=== PATIENT | male | born 1980 | race Caucasian/White ===

== ENCOUNTER 2017-09-08 02:19 | Emergency (ER) | payer OTHER ==
--- NOTE | 2017-09-08 03:05 | RADIOLOGY REPORT (SQ) ---
EXAM DESCRIPTION: KNEE LEFT 4 VIEW COMPLETED DATE/TIME: 09/08/2017 2:51 am REASON FOR STUDY: left knee swelling COMPARISON: None. NUMBER OF VIEWS: Four views. TECHNIQUE: AP, lateral, and both oblique radiographic images acquired of the left knee. LIMITATIONS: None. FINDINGS: MINERALIZATION: Normal. BONES: No acute fracture or dislocation. No worrisome bone lesions. JOINT: Joint effusion. SOFT TISSUES: Prepatellar soft tissue swelling. OTHER: No other significant finding. IMPRESSION: No acute bony findings. Joint effusion. Prepatellar soft tissue swelling. TECHNICAL DOCUMENTATION: JOB ID: [id number] [email or web address] All Rights Reserved
--- NOTE | 2017-09-08 03:55 | ER Document Report ---
ED Extremity Problem, Lower - General Mode of Arrival: Medic Information source: Patient - HPI Patient complains to provider of: Pain, Swelling Location: Knee Occurred: Other - 1.5 weeks ago Associated symptoms: Other - see notes above <ELIDA MAYO - Last Filed: 09/08/17 05:31> <MARGE HENDERSON - Last Filed: 09/08/17 06:24> <JENNIFER JOHANSEN - Last Filed: 09/08/17 15:33> <MAGALY WEN - Last Filed: 09/08/17 23:13> - General Chief Complaint: Knee Pain Stated Complaint: LEG PAIN Time Seen by Provider: 09/08/17 03:38 Notes: 37 year old male with history of gout and gallbladder problems presents to the ED complaining of severe left knee pain that extends to the left groin which started 1.5 weeks ago and worsened tonight. Patient is also complaining of left knee swelling that extends down the leg. Patient has been taking Ibuprofen for the past 1.5 weeks for pain and swelling control. Patient was seen at an Urgent Care 2 days ago where blood work was preformed. Patient was given Relafen, Allopurinol, and a steroid shot. Patient denies any fever. 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 Patient reports that he is 'burping up sulfur' and states that this is usually associated with ' gallbladder attacks'. (ELIDA MAYO) - Related Data Allergies/Adverse Reactions: No Known Allergies Allergy (Unverified 09/08/17 02:28) Past Medical History - General Information source: Patient - Social History Smoking Status: Current Every Day Smoker Chew tobacco use (# tins/day): Yes Frequency of alcohol use: None Drug Abuse: None Family History: Reviewed & Not Pertinent Renal/ Medical History: Denies: Hx Peritoneal Dialysis Musculoskeltal Medical History: Reports Hx Gout, Reports Hx Musculoskeletal Trauma - Back and neck fractures <ELIDA MAYO - Last Filed: 09/08/17 05:31> Review of Systems - Review of Systems Constitutional: No symptoms reported. denies: Fever EENT: No symptoms reported Cardiovascular: No symptoms reported Respiratory: No symptoms reported Gastrointestinal: No symptoms reported Genitourinary: No symptoms reported Male Genitourinary: No symptoms reported Musculoskeletal: See HPI, Joint pain - left knee, Joint swelling - left knee that extends down the leg, Other - left groin pain Skin: No symptoms reported Hematologic/Lymphatic: No symptoms reported Neurological/Psychological: No symptoms reported -: Yes All other systems reviewed and negative <ELIDA MAYO - Last Filed: 09/08/17 05:31> Physical Exam <ELIDA MAYO - Last Filed: 09/08/17 05:31> <MARGE HENDERSON - Last Filed: 09/08/17 06:24> <JENNIFER JOHANSEN - Last Filed: 09/08/17 15:33> <MAGALY WEN - Last Filed: 09/08/17 23:13> - Vital signs Vitals: Temp Pulse Resp BP Pulse Ox 97.9 F 87 18 150/101 H 98 09/08/17 02:33 09/08/17 02:33 09/08/17 02:33 09/08/17 02:33 09/08/17 02:33 - Notes Notes: GENERAL: Alert, interacts well. Patient is crying and writhing in pain upon physical examination and manipulation of left lower extremity. HEAD: Normocephalic, atraumatic. EYES: Pupils equal, round, and reactive to light. Extraocular movements intact. ENT: Oral mucosa moist, tongue midline. NECK: Full range of motion. Supple. Trachea midline. LUNGS: Clear to auscultation bilaterally, no wheezes, rales, or rhonchi. No respiratory distress. HEART: Regular rhythm; Tachycardic. No murmurs, gallops, or rubs. ABDOMEN: Soft, non-tender. Non-distended. Bowel sounds present in all 4 quadrants. EXTREMITIES: Radial and dorsalis pedis pulses 2/4 bilaterally. No cyanosis. Left knee is swollen and tender to palpation. Left knee is not erythematous or more warm than right knee. Decrease passive and active range of motion to left knee. Left calf more swollen than right calf. Left thigh is not swollen. No swelling to the left juarez. Left leg is initially flexed at the hip with the knee straight on the stretcher. During examination, patient was unable to passively flex the left knee more than 45 degrees. NEUROLOGICAL: Alert and oriented x3. Normal speech. PSYCH: Normal affect, normal mood. SKIN: Warm and dry. No rashes or lesions noted. (ELIDA MAYO) Course - Laboratory Result Diagrams: 09/08/17 04:16 09/08/17 04:16 <ELIDA MAYO - Last Filed: 09/08/17 05:31> - Laboratory Result Diagrams: 09/08/17 04:16 09/08/17 04:16 - Transfer of Care Care transferred to following provider: Dr. Johansen <MARGE HENDERSON - Last Filed: 09/08/17 06:24> - Laboratory Result Diagrams: 09/08/17 04:16 09/08/17 04:16 <JENNIFER JOHANSEN - Last Filed: 09/08/17 15:33> - Laboratory Result Diagrams: 09/08/17 04:16 09/08/17 04:16 <MAGALY WEN - Last Filed: 09/08/17 23:13> - Re-evaluation Re-evalutation: 09/08/17 04:42 Attempted to aspirate the left knee using sterile technique after numbing with lidocaine, dry tap on both the medial and the lateral aspect. 09/08/17 06:24 Patient is feeling somewhat better, I am concerned by the elevated white blood cell count and the elevated CRP. Patient is a diesel truck mechanic so I am concerned for the possibility of a DVT versus a septic joint given the leukocytosis and elevated CRP. As I was unable to obtain any fluid we will continue to look for DVT. Doppler ultrasound will not be in for the next 1-2 hours, patient has been signed out to Dr. Johansen. Should the ultrasound negative for DVT the patient will likely need orthopedic consultation for possible septic joint. ( MARGE HENDERSON) 09/08/17 09:[address] Goodman notified. 09/08/17 14:38 Dr. Goodman was able to extract synovial fluid was sent for testing currently waiting on those results (JENNIFER JOHANSEN) 09/08/17 17:00 Fluid has a negative Gram stain. White cells are 567. Patient is still having knee pain. No evidence for infection. Discussed with Dr. Goodman who recommends giving the patient colchicine and Toradol. Patient is to follow-up in the office. Patient will be given food as he has been kept n.p.o. for possible surgery. Patient has a knee immobilizer at home but will need crutches. Of note, the patient does not want any narcotic medication to go home with, so Percocet was canceled. (MAGALY WEN) - Vital Signs Vital signs: Temp Pulse Resp BP Pulse Ox 98.0 F 77 16 117/72 97 09/08/17 18:22 09/08/17 18:22 09/08/17 18:22 09/08/17 18:22 09/08/17 18:22 - Laboratory Laboratory results interpreted by me: 09/08/17 09/08/17 09/08/17 04:16 04:16 04:16 WBC 11.8 H RDW 14.1 H Sodium 146.2 H C-Reactive Protein 13.1 H Total Protein 6.2 L Discharge <ELIDA MAYO - Last Filed: 09/08/17 05:31> <MARGE HENDERSON - Last Filed: 09/08/17 06:24> <JENNIFER JOHANSEN - Last Filed: 09/08/17 15:33> <MAGALY WEN - Last Filed: 09/08/17 23:13> - Discharge Clinical Impression: Left knee pain Qualifiers: Chronicity: acute Qualified Code(s): M25.562 - Pain in left knee Condition: Good Disposition: HOME, SELF-CARE Additional Instructions: Follow-up with your primary care physician. Prescriptions: Indomethacin [Indocin 25 mg Capsule] 25 - 50 mg PO BIDP PRN #30 capsule PRN Reason: Oxycodone HCl/Acetaminophen [Percocet 5-325 mg Tablet] 1 - 2 tab PO Q4H PRN #20 tablet PRN Reason: Referrals: PORTER MCKEON FNP-C [Primary Care Provider] - Follow up as needed LAILA GOODMAN DO [ACTIVE STAFF] - Follow up in 3-5 days Scribe Attestation: 09/08/17 23:13 I personally performed the services described in the documentation, reviewed and edited the documentation which was dictated to the scribe in my presence, and it accurately records my words and actions. (MAGALY WEN) Scribe Documentation - Scribe Written by Scribe:: Virgil Bynum, 09/08/2017 0424 acting as scribe for :: Nando <ELIDA MAYO - Last Filed: 09/08/17 05:31>
[2017-09-08] MEDS ORDERED: OXYCODONE-ACETAMINOPHEN 5-325 MG TABLET PO ONE (03:56)
[2017-09-08] MEDS ORDERED: LIDOCAINE 1% INJ-PF (10 MG/ML) 30 ML SDV INJ ONE (03:56)
[2017-09-08 04:26] LABS: ABSOLUTE BASOPHILS # (AUTO) 0.1 10^3/uL (0.0-0.2); ABSOLUTE EOSINOPHILS # (AUTO) 0.3 10^3/uL (0.0-0.6); ABSOLUTE LYMPHOCYTES (AUTO) 3.2 10^3/uL (0.5-4.7); ABSOLUTE MONOCYTES (AUTO) 0.8 10^3/uL (0.1-1.4); ABSOLUTE NEUT (AUTO) 7.4 10^3/uL (1.7-8.2); BASOPHILS % (AUTO) 0.6 % (0-2); EOSINOPHILS % (AUTO) 2.7 % (0-6); HEMATOCRIT 40.6 % (37.9-51.0); HEMOGLOBIN 14.1 g/dL (13.5-17.0); HGB HCT DIFFERENCE 1.7; MEAN CORPUSCULAR HEMOGLOBIN 30.9 pg (27.0-33.4); MEAN CORPUSCULAR HGB CONC 34.9 g/dL (32.0-36.0); MEAN CORPUSCULAR VOLUME 89 fl (80-97); RED BLOOD COUNT 4.58 10^6/uL (4.35-5.55); RED CELL DISTRIBUTION WIDTH 14.1 % (11.5-14.0); SEGMENTED NEUTROPHILS % (AUTO) 62.7 % (42-78); WHITE BLOOD COUNT 11.8 10^3/uL (4.0-10.5)
[2017-09-08 04:37] LABS: ALANINE AMINOTRANSFERASE 36 U/L (21-72); ALKALINE PHOSPHATASE 87 U/L (38-126); ANION GAP 12 (5-19); ASPARTATE AMINO TRANSFERASE 22 U/L (17-59); BILIRUBIN,DIRECT 0.4 mg/dL (0.0-0.4); BILIRUBIN,TOTAL 0.6 mg/dL (0.2-1.3); BLOOD UREA NITROGEN 18 mg/dL (7-20); CALCIUM 9.3 mg/dL (8.4-10.2); CARBON DIOXIDE 28 mmol/L (22-30); CHLORIDE 106 mmol/L (98-107); GLUCOSE 90 mg/dL (75-110); LIPASE 170.6 U/L (23-300); SODIUM 146.2 mmol/L (137-145); TOTAL PROTEIN 6.2 g/dL (6.3-8.2)
[2017-09-08] MEDS ORDERED: MORPHINE SULFATE 10 MG/ML INJ IV ONE ×2 (05:04→06:24)
[2017-09-08 05:29] LABS: PROTHROMBIN TIME 11.6 SEC (11.4-15.4)
[2017-09-08 06:04] LABS: APPEARANCE,URINE CLEAR; BILIRUBIN,URINE NEGATIVE (NEGATIVE); GLUCOSE, URINE NEGATIVE (NEGATIVE); KETONES,URINE NEGATIVE (NEGATIVE); LEUKOCYTE ESTERASE,URINE NEGATIVE (NEGATIVE); NITRITE,URINE NEGATIVE (NEGATIVE); PROTEIN,URINE NEGATIVE (NEGATIVE); URINE SPECIFIC GRAVITY 1.024; UROBILINOGEN,URINE NEGATIVE mg/dL (<2.0)
[2017-09-08] MEDS: MORPHINE SULFATE 10 MG/ML INJ IV SCH ×6 (08:04→18:24)
[2017-09-08 14:30] LABS: FLUID TYPE SYNOVIAL
[2017-09-08 14:31] LABS: FLUID APPEARANCE CLOUDY; FLUID RBC SIDE 1 148
[2017-09-08 14:32] LABS: FLUID RBC AVERAGE 149.5; FLUID RBC DILUENT USED SALINE; FLUID RBC DILUTION FACTOR 10; FLUID RBC SIDE 2 151; TOTAL RBC SQUARES COUNTED FLD 25
[2017-09-08] MEDS ORDERED: COLCHICINE 0.6 MG TABLET PO ONE (16:06)
[2017-09-08] MEDS ORDERED: KETOROLAC TROMETHAMINE INJ/PF 30 MG/1 ML SDV IV ONE (16:12)
--- NOTE | 2017-09-08 16:25 | XCELERA REPORT ---
[address] [address] Lower Extremity Venous Evaluation Name: FER PAUL Age: 37 yrs Gender: Male : 1980 Patient Status: Emergency Patient Location: ER Study Date: 09/08/2017 08:06 AM Procedure: Color flow and duplex imaging of the veins of the left lower extremity as well as the right Common Femoral vein. Reason For Study: left leg swelling and pain Ordering Physician: MARGE HENDERSON Performed By: Ban Juarez Right Sided Venous Evaluation The right common femoral vein is fully compressible. Spontaneous and phasic flow is present in the right common femoral vein. Left Sided Venous Evaluation Normal vessel filling wall to wall, compression and augmentation as well as Colour flow down to the infrageniculate veins. Interpretation Summary No duplex evidence of DVT or obstruction in the left lower extremity nor in the right Common Femoral vein. : MARGE HENDERSON > Brandyn Medrano
--- NOTE | 2017-09-08 17:28 | PDOC CONSULTATION ---
History of Present Illness Admission Date/PCP: ARTEMIO MCCARTNEY Patient complains of: left knee pain History of Present Illness: FER PAUL is a 37 year old male presents to the emergency room with left knee pain. he states has been ongoing since friday and then his pain exacerbated over the past 24 hours. since that time he had difficulty bearing weight onto his left leg. he notes history of gout which he takes allopurinol for. denies fever chills or sweats. 2 attempts at aspiration were performed today in the emergency room unsuccessfully. patient denies history of gout in his left knee. pain 06/02. Past Medical History Musculoskeltal Medical History: Reports: Gout Social History Smoking Status: Current Every Day Smoker Family History Family History: Reviewed & Not Pertinent Parental Family History Reviewed: No Children Family History Reviewed: No Sibling(s) Family History Reviewed.: No Medication/Allergy Allergies/Adverse Reactions: No Known Allergies Allergy (Unverified 09/08/17 02:28) Review of Systems Constitutional: ABSENT: chills, fever(s), headache(s), weight gain, weight loss Eyes: ABSENT: visual disturbances Ears: ABSENT: hearing changes Cardiovascular: ABSENT: chest pain, dyspnea on exertion, edema, orthropnea, palpitations Respiratory: ABSENT: cough, hemoptysis Gastrointestinal: ABSENT: abdominal pain, constipation, diarrhea, hematemesis, hematochezia, nausea, vomiting Genitourinary: ABSENT: dysuria, hematuria Musculoskeletal: PRESENT: as per HPI Integumentary: ABSENT: rash, wounds Neurological: ABSENT: abnormal gait, abnormal speech, confusion, dizziness, focal weakness, syncope Psychiatric: ABSENT: anxiety, depression, homidical ideation, suicidal ideation Endocrine: ABSENT: cold intolerance, heat intolerance, menstrual abnormalities, polydipsia, polyuria Hematologic/Lymphatic: ABSENT: easy bleeding, easy bruising, lymphadenopathy Physical Exam Vital Signs: Temp Pulse Resp BP Pulse Ox 97.9 F 87 18 150/101 H 98 09/08/17 02:33 09/08/17 02:33 09/08/17 02:33 09/08/17 02:33 09/08/17 02:33 Intake & Output 09/07/17 09/08/17 09/09/17 06:59 06:59 06:59 Weight 93.8 kg General appearance: PRESENT: no acute distress, well-developed, well-nourished Head exam: PRESENT: atraumatic, normocephalic Eye exam: PRESENT: conjunctiva pink, EOMI, PERRLA. ABSENT: scleral icterus Ear exam: PRESENT: normal external ear exam Mouth exam: PRESENT: moist, tongue midline Neck exam: PRESENT: full ROM. ABSENT: carotid bruit, JVD, lymphadenopathy, thyromegaly Cardiovascular exam: PRESENT: RRR. ABSENT: diastolic murmur, rubs, systolic murmur Pulses: PRESENT: normal dorsalis pedis pul, +2 pedal pulses bilateral Vascular exam: PRESENT: normal capillary refill GI/Abdominal exam: PRESENT: normal bowel sounds, soft. ABSENT: distended, guarding, mass, organolmegaly, rebound, tenderness Rectal exam: PRESENT: deferred Musculoskeletal exam: PRESENT: other - left knee: tenderness to palpation of the suprapatellar pouch. notable effusion. no erythema. no prepatellar bursa. pain with flexion extension of the knee. tenderness with light touch. no calf tenderness. intact plantar flexion/dorsiflexion. dorsalis pedis pulse 2+. Neurological exam: PRESENT: alert, awake, oriented to person, oriented to place , oriented to time, oriented to situation, CN II-XII grossly intact. ABSENT: motor sensory deficit Psychiatric exam: PRESENT: appropriate affect, normal mood. ABSENT: homicidal ideation, suicidal ideation Skin exam: PRESENT: dry, intact, warm. ABSENT: cyanosis, rash Results Laboratory Results: 09/08/17 04:16 09/08/17 04:16 09/08/17 09/08/17 09/08/17 04:16 04:16 04:16 WBC 11.8 H RBC 4.58 Hgb 14.1 Hct 40.6 MCV 89 MCH 30.9 MCHC 34.9 RDW 14.1 H Plt Count 289 Seg Neutrophils % 62.7 Lymphocytes % 27.0 Monocytes % 7.0 Eosinophils % 2.7 Basophils % 0.6 Absolute Neutrophils 7.4 Absolute Lymphocytes 3.2 Absolute Monocytes 0.8 Absolute Eosinophils 0.3 Absolute Basophils 0.1 Sodium 146.2 H Potassium 4.0 Chloride 106 Carbon Dioxide 28 Anion Gap 12 BUN 18 Creatinine 0.90 Est GFR ( Amer) > 60 Est GFR (Non-Af Amer) > 60 Glucose 90 Uric Acid Calcium 9.3 Total Bilirubin 0.6 AST 22 ALT 36 Alkaline Phosphatase 87 C-Reactive Protein 13.1 H Total Protein 6.2 L Albumin 4.0 Lipase 170.6 Urine Color Urine Appearance Urine pH Ur Specific [place] Urine Protein Urine Glucose (UA) Urine Ketones Urine Blood Urine Nitrite Ur Leukocyte Esterase Urine WBC (Auto) Urine RBC (Auto) Fluid Type Fluid Source Fluid Color Fluid Appearance Fluid Viscosity Fluid WBC Fluid RBC 09/08/17 09/08/17 09/08/17 04:16 05:10 13:10 WBC RBC Hgb Hct MCV MCH MCHC RDW Plt Count Seg Neutrophils % Lymphocytes % Monocytes % Eosinophils % Basophils % Absolute Neutrophils Absolute Lymphocytes Absolute Monocytes Absolute Eosinophils Absolute Basophils Sodium Potassium Chloride Carbon Dioxide Anion Gap BUN Creatinine Est GFR ( Amer) Est GFR (Non-Af Amer) Glucose Uric Acid 6.9 Calcium Total Bilirubin AST ALT Alkaline Phosphatase C-Reactive Protein Total Protein Albumin Lipase Urine Color YELLOW Urine Appearance CLEAR Urine pH 5.0 Ur Specific [place] 1.024 Urine Protein NEGATIVE Urine Glucose (UA) NEGATIVE Urine Ketones NEGATIVE Urine Blood NEGATIVE Urine Nitrite NEGATIVE Ur Leukocyte Esterase NEGATIVE Urine WBC (Auto) 0 Urine RBC (Auto) 1 Fluid Type SYNOVIAL Fluid Source KNEE Fluid Color Fluid Appearance CLOUDY Fluid Viscosity MODERATELY VISCOUS Fluid WBC 567 Fluid RBC [id number] 09/08/17 13:10 WBC RBC Hgb Hct MCV MCH MCHC RDW Plt Count Seg Neutrophils % Lymphocytes % Monocytes % Eosinophils % Basophils % Absolute Neutrophils Absolute Lymphocytes Absolute Monocytes Absolute Eosinophils Absolute Basophils Sodium Potassium Chloride Carbon Dioxide Anion Gap BUN Creatinine Est GFR ( Amer) Est GFR (Non-Af Amer) Glucose Uric Acid Calcium Total Bilirubin AST ALT Alkaline Phosphatase C-Reactive Protein Total Protein Albumin Lipase Urine Color Urine Appearance Urine pH Ur Specific [place] Urine Protein Urine Glucose (UA) Urine Ketones Urine Blood Urine Nitrite Ur Leukocyte Esterase Urine WBC (Auto) Urine RBC (Auto) Fluid Type SYNOVIAL Fluid Source LEFT KNEE Fluid Color Fluid Appearance Fluid Viscosity Fluid WBC Fluid RBC Impressions: Knee X-Ray 09/08/17 00:00 IMPRESSION: No acute bony findings. Joint effusion. Prepatellar soft tissue swelling. Status: Image reviewed by me - i have reviewed patient's radiographs of the left knee which demonstrated no evidence of acute abnormalities notable effusion. Assessment & Plan - Diagnosis (1) Gout of left knee Qualifiers: Gout etiology: unspecified cause Chronicity: acute Qualified Code(s): M10.9 - Gout, unspecified Is this a current diagnosis for this admission?: Yes Plan: i have reviewed patient's radiographs and laboratory findings which demonstrate mild leukocytosis with insignificant elevation of the sed rate or crp which in a normal septic knee process would be fairly elevated along with patient's white blood cell count on aspirate which was 576. thus i feel this is more indicative of acute gouty arthropathy or inflammatory arthropathy and have recommended colchicine and anti-inflammatories. if patient's symptoms do not improve or worsen he will return insertion for further evaluation and treatment. in the meantime culture results will continue to be followed. patient should follow-up with me in 7-to 10 days. procedure note: pre-/post diagnosis: left knee effusion procedure performed: left knee aspiration procedure in detail: we discussed various treatment/diagnostic options including bedside aspiration. risks and benefits of the procedure were explained to the patient patient verbalized understanding and consented for the procedure. the left suprapatellar area was prepped with betadine and alcohol. with the use of a 22- gauge spinal needle aspiration was performed obtaining 30 cc of straw-colored clear synovial fluid with aspiration of small amount of blood. patient tolerated procedure well.
[2017-09-08] MEDS ORDERED: HYDROCODONE/ACETAMINOPHEN 5-325 MG 6 TAB/DSPK PO PRN (17:53)
[2017-09-08 18:22] VITALS: BP 117/72
== END 2017-09-08 18:22 | disposition home or self-care (01) ==
LOC: ER 02:19
DX: M10.9 Gout, unspecified (principal); M25.562 Pain in left knee; M25.462 Effusion, left knee; F17.200 Nicotine dependence, unspecified, uncomplicated; F10.10 Alcohol abuse, uncomplicated
CPT/HCPCS: 96376; 99284; 96374; 96375; 36415; 87205; 87070; 83690; 84550; 85025; 85652; 85610; 89050; 89060; 87075; 86140; 80053; 81001; 93971 ×2; 73562; 10021; J3490; J1885; J2270

== ENCOUNTER 2018-03-30 17:27 | Emergency (ER) | payer OTHER ==
[2018-03-30] MEDS ORDERED: DIAZEPAM 5 MG TABLET PO ONE (18:48)
[2018-03-30] MEDS ORDERED: IBUPROFEN 600 MG TABLET PO ONE (18:48)
--- NOTE | 2018-03-30 18:50 | ER Document Report ---
ED Medical Screen (RME) - General Chief Complaint: Chest Pain > 30 Stated Complaint: LEFT ARM PAIN Time Seen by Provider: 03/30/18 18:41 Notes: RAPID MEDICAL EVALUATION DISCLOSURE I have seen this patient as part of a Rapid Medical Evaluation and, if applicable, placed any initially appropriate orders. The patient will be seen and fully evaluated, including a full history and physical exam, by a provider ( in Main ED or Fast Track) when a room becomes available. 37-year-old male sent here by his physician for left-sided chest pain radiating up to the left shoulder down the left arm as well as shortness of breath diaphoresis nausea ongoing for the past few days. The symptoms have been intermittent. They are worse when the patient moves his left arm. His shortness of breath is sometimes worse with exertion but his chest pain is not worse with exertion. He denies any recent heavy lifting or traumatic injury. He lifts the same amount at work and this is no different from baseline. EXAM Moderate and exquisite tenderness to palpation of the left chest wall, left arm , left trapezius Clear to auscultation bilaterally Regular rate and rhythm TRAVEL OUTSIDE OF THE [place] IN LAST 30 DAYS: No - Related Data Allergies/Adverse Reactions: No Known Allergies Allergy (Verified 03/30/18 17:32) Home Medications: allupurinol Past Medical History Renal/ Medical History: Denies: Hx Peritoneal Dialysis Musculoskeltal Medical History: Reports Hx Gout, Reports Hx Musculoskeletal Trauma - Back and neck fractures Physical Exam - Vital signs Vitals: Temp Pulse Resp BP Pulse Ox 98.6 F 80 14 136/80 H 99 03/30/18 17:37 03/30/18 17:37 03/30/18 17:37 03/30/18 17:37 03/30/18 17:37 Course - Vital Signs Vital signs: Temp Pulse Resp BP Pulse Ox 98.6 F 80 14 136/80 H 99 03/30/18 17:37 03/30/18 17:37 03/30/18 17:37 03/30/18 17:37 03/30/18 17:37
[2018-03-30] MEDS ORDERED: IBUPROFEN 800 MG TABLET ONE (18:54)
[2018-03-30] MEDS ORDERED: IBUPROFEN 800 MG TABLET PO ONE (18:54)
[2018-03-30 19:35] LABS: ABSOLUTE BASOPHILS # (AUTO) 0.1 10^3/uL (0.0-0.2); ABSOLUTE EOSINOPHILS # (AUTO) 0.3 10^3/uL (0.0-0.6); ABSOLUTE LYMPHOCYTES (AUTO) 2.7 10^3/uL (0.5-4.7); ABSOLUTE NEUT (AUTO) 10.4 10^3/uL (1.7-8.2); BASOPHILS % (AUTO) 0.9 % (0-2); EOSINOPHILS % (AUTO) 1.8 % (0-6); HEMATOCRIT 42.6 % (37.9-51.0); HEMOGLOBIN 15.1 g/dL (13.5-17.0); LYMPHOCYTES % (AUTO) 18.8 % (13-45); MEAN CORPUSCULAR HEMOGLOBIN 30.6 pg (27.0-33.4); MEAN CORPUSCULAR HGB CONC 35.4 g/dL (32.0-36.0); MEAN CORPUSCULAR VOLUME 86 fl (80-97); MONOCYTES % (AUTO) 6.9 % (3-13); PLATELET COUNT 278 10^3/uL (150-450); RED BLOOD COUNT 4.93 10^6/uL (4.35-5.55); RED CELL DISTRIBUTION WIDTH 13.4 % (11.5-14.0); SEGMENTED NEUTROPHILS % (AUTO) 71.6 % (42-78); TOTAL CELLS COUNTED % (AUTO) 100 %; WHITE BLOOD COUNT 14.6 10^3/uL (4.0-10.5)
--- NOTE | 2018-03-30 19:53 | RADIOLOGY REPORT (SQ) ---
EXAM DESCRIPTION: CHEST 2 VIEWS COMPLETED DATE/TIME: 03/30/2018 7:27 pm REASON FOR STUDY: CP SOB COMPARISON: None. EXAM PARAMETERS: NUMBER OF VIEWS: two views TECHNIQUE: Digital Frontal and Lateral radiographic views of the chest acquired. RADIATION DOSE: NA LIMITATIONS: none FINDINGS: LUNGS AND PLEURA: No opacities, masses or pneumothorax. No pleural effusion. MEDIASTINUM AND HILAR STRUCTURES: No masses or contour abnormalities. HEART AND VASCULAR STRUCTURES: Heart normal size. No evidence for failure. BONES: No acute findings. HARDWARE: None in the chest. OTHER: No other significant finding. IMPRESSION: NO ACUTE RADIOGRAPHIC FINDING IN THE CHEST. TECHNICAL DOCUMENTATION: JOB ID: [id number] [employer]- All Rights Reserved Reading location - IP/workstation name: [email or web address]
[2018-03-30 19:57] LABS: ANION GAP 12 (5-19); BLOOD UREA NITROGEN 14 mg/dL (7-20); CALCIUM 9.7 mg/dL (8.4-10.2); CARBON DIOXIDE 28 mmol/L (22-30); CHLORIDE 102 mmol/L (98-107); GLUCOSE 93 mg/dL (75-110); POTASSIUM 4.1 mmol/L (3.6-5.0); SODIUM 141.5 mmol/L (137-145)
[2018-03-30 20:08] LABS: NT PRO BNP 30 pg/mL (<125)
[2018-03-30] MEDS ORDERED: ONDANSETRON HCL INJ/PF 4 MG/2 ML SDV IV ONE (20:09)
[2018-03-30 20:11] LABS: TROPONIN I < 0.012 ng/mL
--- NOTE | 2018-03-30 20:15 | ER Document Report ---
ED General - General Chief Complaint: Chest Pain > 30 Stated Complaint: LEFT ARM PAIN Time Seen by Provider: 03/30/18 18:41 Mode of Arrival: Ambulatory Information source: Patient, Relative Notes: 37-year-old male with a history of degenerative disc disease, gout presents with complaints of left-sided neck, shoulder, elbow pain that started 2 days prior to arrival. Patient describes the pain as a constant burning pain that radiates into his left upper chest. Patient has taken aspirin and Motrin without relief. He states Friday he attended the air show and later that night the pain awoke him from sleep. Does have a history of previous cervical compression and lumbar compression fractures. He denies any previous spinal surgery. He reports one episode of vomiting this morning which he believes is secondary to pain. Patient states pain has been constant the last 2 days. Pain is worse with movement and relieved with remaining still TRAVEL OUTSIDE OF THE [place] IN LAST 30 DAYS: No - HPI Onset: Other Onset/Duration: Constant Quality of pain: Burning Severity: Moderate Associated symptoms: Chest pain, Nausea, Vomiting. denies: Fever, Shortness of breath Exacerbated by: Movement Relieved by: Remaining still Similar symptoms previously: Yes Recently seen / treated by doctor: Yes - Related Data Allergies/Adverse Reactions: No Known Allergies Allergy (Verified 03/30/18 17:32) Home Medications: allupurinol Past Medical History - General Information source: Patient - Social History Smoking Status: Current Every Day Smoker Frequency of alcohol use: Rare Drug Abuse: None Lives with: Spouse/Significant other Family History: Reviewed & Not Pertinent Patient has suicidal ideation: No Patient has homicidal ideation: No - Medical History Medical History: Other - Degenerative disc disease, gout Renal/ Medical History: Denies: Hx Peritoneal Dialysis Musculoskeltal Medical History: Reports Hx Gout, Reports Hx Musculoskeletal Trauma - Back and neck fractures Review of Systems - Review of Systems Notes: Patient denies fever, chills, headache, ear pain, sore throat, cough, shortness of breath, abdominal pain, back pain, dysuria, hematuria, rash, SI/HI. Physical Exam - Vital signs Vitals: Temp Pulse Resp BP Pulse Ox 98.6 F 80 14 136/80 H 99 03/30/18 17:37 03/30/18 17:37 03/30/18 17:37 03/30/18 17:37 03/30/18 17:37 Interpretation: Normal - Notes Notes: PHYSICAL EXAMINATION: GENERAL: Well-appearing, well-nourished and in no acute distress. HEAD: Atraumatic, normocephalic. EYES: Pupils equal round and reactive to light, extraocular movements intact, sclera anicteric, conjunctiva are normal. ENT: Nares patent, oropharynx clear without exudates. Moist mucous membranes. NECK: Normal range of motion, supple without lymphadenopathy LUNGS: Breath sounds clear to auscultation bilaterally and equal. No wheezes rales or rhonchi. HEART: Regular rate and rhythm without murmurs ABDOMEN: Soft, nontender, nondistended abdomen. No guarding, no rebound. No masses appreciated. Musculoskeletal: Left upper extremity with decreased range of motion secondary to pain, Increased muscle tonicity along the left trapezius, erythema of the left elbow with pain with range of motion. No overlying abrasions cuts. radial pulse intact. Sensation intact. No neuro deficits. Cap refill less than 2 seconds. Teletray Operator strength 5/5. NEUROLOGICAL: Cranial nerves grossly intact. Normal speech, normal gait. Normal sensory, motor exams PSYCH: Normal mood, normal affect. SKIN: Warm, Dry, normal turgor, no rashes or lesions noted. Course - Re-evaluation Re-evalutation: 04/01/18 14:08 Laboratory 03/30/18 03/30/18 03/30/18 19:17 19:17 19:17 WBC 14.6 H RBC 4.93 Hgb 15.1 Hct 42.6 MCV 86 MCH 30.6 MCHC 35.4 RDW 13.4 Plt Count 278 Seg Neutrophils % 71.6 Lymphocytes % 18.8 Monocytes % 6.9 Eosinophils % 1.8 Basophils % 0.9 Absolute Neutrophils 10.4 H Absolute Lymphocytes 2.7 Absolute Monocytes 1.0 Absolute Eosinophils 0.3 Absolute Basophils 0.1 Sodium 141.5 Potassium 4.1 Chloride 102 Carbon Dioxide 28 Anion Gap 12 BUN 14 Creatinine 0.82 Est GFR ( Amer) > 60 Est GFR (Non-Af Amer) > 60 Glucose 93 Calcium 9.7 Troponin I < 0.012 NT-Pro-B Natriuret Pep 30 Chest X-Ray 03/30/18 18:42 IMPRESSION: NO ACUTE RADIOGRAPHIC FINDING IN THE CHEST. Cervical Spine CT 03/30/18 20:09 IMPRESSION: Mild spondylotic changes at the C3-4 and C6-7 levels.. NO ACUTE FINDINGS. 37-year-old male with a history of chronic neck and back pain, gout presents with complaint of 2 days of left-sided neck, left shoulder, left elbow and left upper chest pain. Patient states pain has been a constant burning pain that is worse with range of motion of his left upper extremity. He states the pain started the night after he attended the air show where he was staring up at the [place] for long periods of time. Upon arrival vitals were reviewed patient is afebrile, normotensive and hypoxic. He does not appear toxic or dehydrated. He is in no acute distress. Exam is significant for increased muscle tenderness today along the left trapezius which is tender and erythematous left elbow which I believe to be a gout flare for the patient who states that he suffers from gout chronically. Cardiac workup was obtained and within normal limits. Patient had a normal EKG. With 2 days of constant pain I believe we would have seen some evidence of cardiac involvement. CT of the cervical spine was obtained and without acute findings. Chest x-ray was also obtained and within normal limits. Patient does have a mildly elevated white count which was discussed with the patient and his states that this often occurs with his gout flares. Patient was provided him, Zofran for his muscle spasm and nausea. Patient and spouse were provided the opportunity to ask questions, and express concerns. Discharge instructions discussed. Patient is agreeable with discharge home. Return indications explained and discussed with the patient who displays understanding. Patient encouraged to return to the emergency department immediately with any concerns. 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 If you cannot afford to follow up with your primary care physician a list of low cost clinics have been provided at the end of your discharge papers as well. Prescriptions: Cyclobenzaprine HCl [Flexeril 10 mg Tablet] 10 mg PO TIDP PRN #15 tab PRN Reason: Ibuprofen [Motrin 800 mg Tablet] 800 mg PO Q8H PRN #30 tab PRN Reason: Forms: Smoking Cessation Education, Return to Work
[2018-03-30] MEDS ORDERED: ONDANSETRON 4 MG TAB.RAPDIS PO ONE (20:32)
--- NOTE | 2018-03-30 20:49 | RADIOLOGY REPORT (SQ) ---
EXAM DESCRIPTION: CT CERVICAL SPINE WITHOUT COMPLETED DATE/TIME: 03/30/2018 8:36 pm REASON FOR STUDY: radicular pain COMPARISON: None. TECHNIQUE: Axial images acquired through the cervical spine without intravenous contrast. Images re viewed with lung, soft tissue and bone windows. Reconstructed coronal and sagittal MPR images review ed. Images stored on PACS. All CT scanners at this facility use dose modulation, iterative reconstruction, and/or weight based d osing when appropriate to reduce radiation dose to as low as reasonably achievable (ALARA). [facility]: Dose Right [facility]: CareDose [facility]: Dose Right [facility]: Teradose 4D [facility]: Smart Digital Lumens RADIATION DOSE: CT Rad equipment meets quality standard of care and radiation dose reduction techniq ues were employed. CTDIvol: 19.6 mGy. DLP: 421 mGy-cm. mGy. LIMITATIONS: None. FINDINGS: ALIGNMENT: Anatomic. MINERALIZATION: Normal. VERTEBRAL BODIES: No fractures or dislocation. DISCS: Mild spondylotic changes at the C3-4 and C6-7 levels. FACETS, LATERAL MASSES, POSTERIOR ELEMENTS: No significant Facet arthropathy. No fractures. No disl ocation. No acute findings. HARDWARE: None in the spine. VISUALIZED RIBS: No fractures. LUNG APICES AND SOFT TISSUES: No significant or acute findings. OTHER: No other significant finding. IMPRESSION: Mild spondylotic changes at the C3-4 and C6-7 levels.. NO ACUTE FINDINGS. TECHNICAL DOCUMENTATION: JOB ID: [id number] Quality ID # [id number]: Final reports with documentation of one or more dose reduction techniques (e.g., Au tomated exposure control, adjustment of the mA and/or kV according to patient size, use of iterative reconstruction technique) 2010 [employer]- All Rights Reserved Reading location - IP/workstation name: [id number]
[2018-03-30 22:40] VITALS: BP 125/78
--- NOTE | 2018-03-31 12:34 | EKG REPORT ---
SEVERITY:- NORMAL ECG - SINUS RHYTHM : Confirmed by: Brendan De MD 31-Mar-2018 12:34:09
== END 2018-03-30 22:57 | disposition home or self-care (01) ==
LOC: ER 17:27
DX: M62.830 Muscle spasm of back (principal); M1A.0220 Idiopathic chronic gout, left elbow, without tophus (tophi); R07.9 Chest pain, unspecified; M54.2 Cervicalgia; M25.512 Pain in left shoulder; M25.522 Pain in left elbow; D72.829 Elevated white blood cell count, unspecified; R11.2 Nausea with vomiting, unspecified; F17.200 Nicotine dependence, unspecified, uncomplicated; Z79.899 Other long term (current) drug therapy
CPT/HCPCS: 93005; 99285; 36415; 85025; 80048; 84484; 83880; 71046; 72125; 93010; S0119